=== PATIENT | female | born 1955 | race Caucasian/White ===

== ENCOUNTER 2025-07-14 14:34 | Inpatient (IN) | payer OTHER, MEDICARE ==
[~2025-07-14] VITALS: Ht 170.2 cm; Wt 158.8 kg
--- NOTE | 2025-07-14 14:40 | ELECTROCARDIOGRAPH REPORT ---
[facility] Test Date: 2025-07-14 Test Time: 14:38:33 Pat Name: SWATI KRAFT Department: EMERGENCY ROOM Room: Gender: F Supervisor Stripping: DARVIN : 1955 Requested By: ANGELES NULL Order Number: [id number] Reading MD: Dr. Angeles Null Measurements Intervals [place] Rate: 109 P: 0 UT: 0 QRS: -44 QRSD: 147 T: 30 QT: 362 QTc: 488 Interpretive Statements Atrial fibrillation RBBB and LAFB Probable left ventricular hypertrophy Electronically Signed On 07-14-2025 17:54:[address] Angeles Null Please click the below link to view image of tracing.
[2025-07-14 14:59] LABS: MEAN PLATELET VOLUME 8.6 FL (7.4-10.4); RED CELL DISTRIBUTION WIDTH 14.8 % (11.5-14.5)
--- NOTE | 2025-07-14 15:08 | RADIOLOGY REPORT ---
CHEST RADIOGRAPH Indication: CP Technique: Single frontal view of the chest was obtained COMPARISON: None FINDINGS: Lines and Tubes: None Lungs: Clear Pleura: No effusion. No pneumothorax. Cardiomediastinal contours: Unremarkable Bones: Unremarkable IMPRESSION: 1. No acute disease.
[2025-07-14 15:12] LABS: CREATININE 0.90 MG/DL (0.40-0.90); PRO BRAIN NATRIURETIC PEPTIDE 555 PG/ML (0-125); TOTAL CARBON DIOXIDE 26.1 MMOL/L (24-32); eCRCL 57 ML/MIN; eGFR 62 ML/MIN
[2025-07-14] MEDS: diltiazem 5mg/ml 5ml inj. IV ONE (15:53)
--- NOTE | 2025-07-14 16:12 | Physician Documentation ---
History of Present Illness ~ Chief Complaint: Shortness of Breath Stated Complaint: AFIB, GENERALIZED ANXIETY Time Seen by MD: 15:42 OK to notify your PCP?: Yes Primary Medical Doctor: N/A Source: patient, RN/MD, EMS, RN notes reviewed, EMS notes reviewed, old records Mode of Arrival: EMS Exam Limitations: no limitations HPI This patient is little bit obese but otherwise pretty healthy. She has some chronic knee pain. She states that she has been doing well she sees doctors does not have any past medical history does not smoke she has had a tonsillectomy. She has been otherwise in good health. For the last few weeks specifically this week she has been profoundly tired fatigued weak she states she feels very anxious today right now as her heart rate was in the 140s she states she feels anxious she does not necessarily feel palpitations or symptoms. She has no history of AFib. She is now requesting evaluation. Medication Reconciliation Allergies: Coded Allergies: albuterol (Verified Allergy, Severe, "shuts down my airway", 07/14/25) Penicillins (Verified Allergy, Intermediate, hives/whelps, 07/14/25) cephalexin (Verified Allergy, Intermediate, hives/whelps, 07/14/25) tetracycline (Verified Allergy, Intermediate, hives/whelps, 07/14/25) Past Medical History Past Medical History: Chronic Pain Past Surgical History: tonsillectomy Smoking Status: Never smoker Alcohol Use: None Drug Use: none Review of Systems All Other Systems at this time: Reviewed and Negative Physical Exam Vital Signs: RN Vital Signs have been reviewed: Yes, Temperature: 97.8, Source: Oral, Heart Rate: 119, Respiratory Rate: 12, BP: 149/99, Pulse Oximetry: 97, Weight: 158.800 Oxygen Flow Rate: 0 Physical Exam General: The patient is well developed, well nourished, nontoxic appearing and is in no acute distress. Morbidly obese Skin: [place], warm and dry with no rashes. HEENT: Head was normocephalic and atraumatic. Eyes - pupils equal, round, reactive to light and accommodation. Extraocular movements were intact. Conjunctivae were nonicteric. The mouth and oropharynx were clear with moist mucous membranes. There were no pharyngeal exudates or erythema. Neck: Supple and nontender. There was no jugular venous distention, lymphadenopathy, thyromegaly or masses. Chest: Clear to auscultation bilaterally without wheezes, rales or rhonchi. No accessory muscle use. No dullness to percussion. Heart: Rapid Rate IRRegular and rhythmic. S1, S2. No murmurs. Palpation of the chest wall was normal. Abdomen: Soft, nontender and nondistended. Positive bowel sounds. No guarding or rebound. Extremities: No cyanosis, clubbing or edema. The patient moves all extremities. Pulses were equal and symmetric. Neurologic: Motor sensory grossly intact Psychologic: The patient was oriented to person, place and time. The patient demonstrated appropriate judgement and insight. Progress Progress Note 5:59 p.m. discussed the case with the hospitalist. Dr Nba MOODY Results/Orders Results/Orders Orders - CORBIN NULL MD Chest,Single View (07/14/25 14:56) Monitor (07/14/25 14:38) Saline Lock (07/14/25 14:38) Oxygen (07/14/25 14:38) BMP (07/14/25 14:38) PBNP (07/14/25 14:38) Electrocardiogram (07/14/25 14:38) Diltiazem-Ns 100mg/100ml (Cardizem-Ns 10 (07/14/25 15:45) Liver Panel (07/14/25 14:38) MG (07/14/25 14:38) Page Hospitalist (07/14/25 17:35) Fill Out Med Reconciliation (07/14/25 17:35) Hgb A1c (07/14/25 14:38) PHOS (07/14/25 14:38) Completed Orders - CORBIN NULL MD Chest,Single View (07/14/25 14:56) Cbc/Diff (07/14/25 14:38) Electrocardiogram (07/14/25 14:38) Hs Troponin I W Calculations (07/14/25 14:38) Hs Troponin I W Calculations (07/14/25 17:38) Diltiazem Iv (Cardizem Iv 5mg/Ml Inj.) (07/14/25 15:45) Aspirin 325mg Tablet (Aspirin 325mg Tabl (07/14/25 16:20) Hs Troponin I W Calculations (07/14/25 16:19) Medications Received in ER Medications (Trade) Dose Ordered Sig/Sylvie Route PRN Reason Start Time Stop Time Status Last Admin Dose Admin (Cardizem IV 5mg/ ml inj.) 5 mg ONCE ONCE IV 07/14/25 15:45 07/14/25 15:48 DC 07/14/25 15:53 5 MG Diltiazem HCl 100 ml @ 5 mls/hr Q20H PRN IV PER PROTOCOL 07/14/25 15:45 07/14/25 16:18 5 MLS/HR (aspirin 325mg tablet) 1 tab ONCE ONCE PO 07/14/25 16:20 07/14/25 16:21 DC 07/14/25 16:21 1 TAB Vital Signs 07/14/25 07/14/25 07/14/25 07/14/25 14:35 14:50 15:00 15:53 Temp 97.8 97.8 Pulse 107 107 119 Resp 15 12 14 B/P (MAP) 151/96 149/99 (116) 149/99 Pulse Ox 97 97 O2 Flow Rate 0 0 07/14/25 07/14/25 07/14/25 07/14/25 16:00 16:18 16:42 17:00 Temp 97.8 97.8 Pulse 140 73 101 Resp 19 11 18 B/P (MAP) 138/100 (113) 138/100 137/100 (112) 159/90 (113) Pulse Ox 97 99 95 O2 Flow Rate 0 0 Laboratory Tests Test 07/14/25 14:38 07/14/25 16:26 07/14/25 17:49 07/14/25 18:09 White Blood Count 6.0 Red Blood Count 5.52 Hemoglobin 16.2 H Hematocrit 48.8 H Mean Corpuscular Volume 88.3 Mean Corpuscular Hemoglobin 29.4 Mean Corpuscular Hemoglobin Concent 33.3 Red Cell Distribution Width 14.8 H Platelet Count 235 Mean Platelet Volume 8.6 Neutrophils (%) (Auto) 52.1 Lymphocytes (%) (Auto) 34.4 Monocytes (%) (Auto) 10.3 Eosinophils (%) (Auto) 2.1 Basophils (%) (Auto) 1.1 H Neutrophils # (Auto) 3.1 Lymphocytes # (Auto) 2.1 Monocytes # (Auto) 0.6 Eosinophils # (Auto) 0.1 Basophils # (Auto) 0.1 CBC Comment Sodium Level 141 Potassium Level 4.4 Chloride Level 107 Carbon Dioxide Level 26.1 Anion Gap 8 Blood Urea Nitrogen 14 Creatinine 0.90 Estimated GFR/1.73 m2 62 BUN/Creatinine Ratio 15.6 Glucose Level 109 H Calcium Level 8.6 Magnesium Level 2.1 Total Bilirubin 0.6 Direct Bilirubin 0.1 Aspartate Amino Transf (AST/SGOT) 19 Alanine Aminotransferase (ALT/SGPT) 13 Alkaline Phosphatase 128 H Troponin I High Sensitivity 7 7 9 Pro-B-Type Natriuretic Peptide 555 H Total Protein 6.9 Albumin 3.1 L Globulin 3.8 Albumin/Globulin Ratio 0.8 L Chemistry Comments Troponin I High Sens Percent Delta 0 28 Troponin I Hi Sens Absolute Change 0 2 Re-Evaluation Re-evaluation : Re-Evaluation: Improved Progress Hospital course: Patient was seen and examined. Patient was given reassurance. Patient was started on Cardizem. She received a bolus and then a drip. Also received aspirin. Laboratory work was obtained. Patient's heart rate improved with time she is stabilized. Laboratory work revealed normal CBC with a WBCs 6.0 hemoglobin hematocrit slightly concentrated 16 and 48 otherwise no left shift. D-dimer was added by the hospitalist service but the patient complained of no shortness of breath no recent travel no swollen legs chemistry is within normal limits. LFTs within normal limits. Troponins x3 is negative. ProBNP 5 five five. Later I contacted the hospitalist regarding management of the patient. Patient also received aspirin. Because the patient is is stable relatively speaking and negative troponin without any end-organ disease no distress and unknown when the AFib started patient will not be cardioverted but instead medically manage him admitted. Continuous umbrella tipper machine interpretation shows rapid AFib with RVR heart rate 140s, abnormal, my interpretation. Pulse oximetry monitor interpretation shows normal oxygenation at 97% room air, normal, my interpretation. EKG/XRAY/CT/US/VASC/MRI Chest X-Ray : Views: 1 VIEW Additional Comments CHEST RADIOGRAPH Indication: CP Technique: Single frontal view of the chest was obtained COMPARISON: None FINDINGS: Lines and Tubes: None Lungs: Clear Pleura: No effusion. No pneumothorax. Cardiomediastinal contours: Unremarkable Bones: Unremarkable IMPRESSION: 1. No acute disease. Medical Decision Making Additional info obtained from: old records Differential Dx:Considerations: Include: anxiety, asthma, bronchitis, cardiogenic shock, CHF, COPD, dysrhythmia, hypertension, accelerated, hypertension, essential, hypertension, malignant, hyperventilation, hyp onatremia, myocardial infarction, panic attack, pneumonia, pneumonitis, pneumothorax, PSVT, pulmonary embolism, respiratory distress, respiratory failure, sinusitis, upper resp. infection, other Departure Disposition: ADMITTED INPATIENT Admitted to Inpatient Unit: yes, to hospitalist Admission Level of Care: PCU with Tele Impression: Primary Impression: Atrial fibrillation with rapid ventricular response Condition: Guarded Referrals: NO PRIMARY CARE PROVIDER (PCP) Education Educated: Patient Educated regarding: diagnosis, need for follow up, other Critical Care Note Total Time (mins): 30 Critical Care Note The very real possibility of a deterioration of this patient's condition required the highest level of my preparedness for sudden, emergent intervention. I provided critical care services, which included medication orders, frequent reevaluations of the patient's condition and response to treatment, ordering and reviewing test results, and discussing the case with various consultants. Excludes time spent performing separately billable procedures. The critical care time associated with the care of the patient was. 30 minutes Signature Scribe Signature: . Attestation: The note accurately reflects work and decisions made by me.Corbin Null MD 07/14/25 17:35 CORBIN NULL MD Jul 14, 2025 16:12
[2025-07-14] MEDS: diltiazem-NS 100mg/100ml 100 ML IV PRN (16:18)
[2025-07-14] MEDS ORDERED: ondansetron/PF 4mg/2ml inj IV PRN (18:00)
[2025-07-14] MEDS ORDERED: HYDROcodone/acetaminophen 10/325mg tab PO PRN (18:00)
[2025-07-14] MEDS ORDERED: potassium Cl 40MEQ/1/2NS 520ml 520 ML IV PRN (18:00)
[2025-07-14] MEDS ORDERED: HYDROcodone/acetaminophen 5mg/325mg tablet PO PRN (18:00)
[2025-07-14] MEDS ORDERED: bisacodyl 10mg suppository rectal RC PRN (18:00)
[2025-07-14] MEDS ORDERED: magnesium hydroxide 30ml (MOM) UD suspension PO PRN (18:00)
[2025-07-14] MEDS ORDERED: magnesium sulf-water 4G/100mL 100 ML IV PRN (18:00)
[2025-07-14] MEDS ORDERED: potassium Cl 20 mEq SR tablet PO PRN ×2 (18:00)
[2025-07-14] MEDS ORDERED: magnesium Cl slow-release 64mg tablet PO PRN (18:00)
[2025-07-14] MEDS ORDERED: acetaminophen 650mg rectal suppository RC PRN (18:00)
[2025-07-14] MEDS ORDERED: magnesium sulf-water 2g/50mL 50 ML IV PRN (18:00)
[2025-07-14] MEDS ORDERED: mag hydrox/Alum hydrox/simeth 30ml oral suspension PO PRN (18:00)
[2025-07-14 18:26] LABS: LEUKOCYTE ESTERASE ,URINE TRACE (Neg); NITRITES, URINE NEGATIVE (Neg); OCCULT BLOOD,URINE NEGATIVE (Neg); UA COLLECTION TYPE CLN CATCH MIDSTREAM
[2025-07-14 18:27] LABS: PHOSPHORUS 2.3 MG/DL (2.3-4.5)
[2025-07-14 18:34] LABS: SQUAMOUS EPITHELIAL CELL,UR FEW /LPF (FEW)
--- NOTE | 2025-07-14 18:43 | HISTORY AND PHYSICAL ---
History & Physical Providers to CC ~, shortness of breath History of Present Illness Reason for Admit\\Complaint: As above History of Present Illness This is 70 years old white female with history of morbid obesity BMI 54, multiple allergies, CHF, ejection fraction unknown, hypertension, anxiety, presented today to emergency department via ambulance, chief chief complaint shortness of breath weakness, anxiety, in addition this is the patient is little bit obese but otherwise pretty healthy. She has some chronic knee pain. She states that she has been doing well she sees doctors does not have any past medical history does not smoke she has had a tonsillectomy. She has been otherwise in good health. For the last few weeks specifically this week she has been profoundly tired fatigued weak she states she feels very anxious today right now as her heart rate was in the 140s she states she feels anxious she does not necessarily feel palpitations or symptoms. She has no history of AFib. She is now requesting evaluation. Emergency department patient was evaluated by physician was diagnosed with atrial fibrillation new onset, rapid ventricular rate started on Cardizem infusion and decision was made to admit patient for further evaluation and treatment, no additional complaint or concern. Allergies: Coded Allergies: albuterol (Verified Allergy, Severe, "shuts down my airway", 07/14/25) Penicillins (Verified Allergy, Intermediate, hives/whelps, 07/14/25) cephalexin (Verified Allergy, Intermediate, hives/whelps, 07/14/25) tetracycline (Verified Allergy, Intermediate, hives/whelps, 07/14/25) Active prescriptions I reviewed reconciled Home Medications Pending Past Medical History Past Medical History As in HPI Past Surgical History Surgical History Comment As in HPI Past Social History Social History Comment Deny illicit drug abuse tobacco alcohol use live with the family good social support Health Maintenance Health Maintenance Noncontributory ROS ROS Constitutional : no fever , no chills, or weakness. No diaphoresis. Allergic/Immunologic, no lymphadenopathy, no hives, no skin eruptions. Eyes, no recent visual changes, no eye pain, no photophobia. Ears, nose, mouth, throat, no sore throat, no nosebleed, no ear pain. Cardiovascular, no palpitations, skipped beats, chest pain, no peripheral edema, Respiratory, positive for dyspnea, no orthopnea, cough, hemoptysis, chest wall pain. Gastrointestinal, no abdominal pain, nausea, vomiting, constipation or diarrhea. : no dysuria, hematuria, pelvic pain, urethral d/c. Endocrine, no polyuria, polydipsia, recent unintentional weight gain or loss. Hematologic/Lymphatic, no petechiae, no enlarged lymph nodes, no bone pain. Integumentary, no rash, no skin lesions, Musculoskeletal, no muscle aches, or pain, no muscle cramps, no recent change in gait Neurological, no dizziness, no headache, no syncope, no paresthesia. Psychiatric, no delusions, visual hallucinations, or hearing hallucinations. ROS - in rest is as in HPI. Exam Vitals: Vital Signs Date Time Temp Pulse Resp B/P (MAP) Pulse Ox O2 Delivery O2 Flow Rate FiO2 07/14/25 18:00 97.8 85 14 148/91 (110) 97 0 Vital signs, stable ,afebrile. Pulse Oximetry reflects adequate oxygenation. BMI is 54, weight 158 kg General: well developed, well nourished. Awake , alert, and oriented x4, resting comfortably in the bed, in no acute distress . Skin: Warm, dry, no pallor, no rash or petechiae. HEENT: Atraumatic, normocephalic, EOMI, anicteric sclera B; pink conjunctiva; PERRLA, normal oropharynx, moist oral and nasal mucosa. Tympanic membrane , nose , throat clear. Neck: Trachea midline. Supple, full range of motion, no JVD, bruit , hepatojugular reflex , lymphadenopathy or masses, or other lesions Cardiac: Regular rhythm, regular rate no murmurs, rubs, or gallops. Normal S1 and S2, no S3 noticed. PMI is normal. Respiratory: Equal breath sounds bilaterally, no tachypnea; lungs clear to auscultation bilaterally, no wheezing ,rub or rales, or crackles. Chest wall is symmetric and without deformity. No signs of trauma. Chest wall is nontender. No signs of respiratory distress. Resonance is normal upon percussion bilaterally. Gastrointestinal: Abdomen symmetric, non-distended, soft, non-tender, normal bowel sounds x4 quadrant, normoactive, no hepatosplenomegaly , no masses , no bruit, no flank pain bilaterally. No voluntary guarding, rebound, or rigidity. No tenderness to percussion. No pulsatile masses. Equal femoral pulses. No Perdomo's sign or McBurney point tenderness. Back; no CVA tenderness bilaterally, no deformities. Neck and back are without deformity as well. No tenderness noted on palpation of the spinous processes. Spinous processes are midline. Cervical, thoracic, and lumbar paraspinal muscles are not tender and are without spasm. : Not indicated Musculoskeletal: Extremities, normal range of motion, non-tender, muscle strength 5/5 x 4. Negative Homans signs bilaterally on lower extremity. Distal pulses full symmetrical, no clubbing, cyanosis , edema. Neurological: Speech is clear, alert, and oriented x 4. No motor or sensory deficit, deep tendon reflexes normal, cerebellar intact. Cranial nerves II-XII intact. Psych: Alert and or appropriate, normal affect. Vascular: Good distal pulses, which are equal x4; capillary refill less than 2 seconds. Lymphatic, no lymphadenopathy. Diagnostic Data Last Recorded Lab Results: 07/14/25 1438 07/14/25 1438 Diagnostic Data: Laboratory Tests Test 07/14/25 18:09 D-Dimer 0.48 MG/L FEU (0-0.50) D-Dimer Comment Advance Care Planning Advanced Care plannin - 30 Minutes Additional Plan Assessment Morbid obesity BMI 54 CHF ejection fraction unknown mild exacerbation Atrial fibrillation new onset rapid ventricular rate Generalized weakness Anxiety disorder in exacerbation Hypertension poor control Hypoalbuminemia Multiple allergies Plan Started on IV Cardizem Started on Eliquis p.o. b.i.d. Nutrition consult Serial troponin EKG Echocardiography pending Additional lab work pending Lasix p.r.n. IV PT evaluation and treatment I reconciled home medications DVT gastropathy prophylaxis addressed Sepsis Screening Reassessment Date: Jul 14, 2025 Date of Service: Jul 14, 2025 Billing Provider: GUILLERMINA FERNANDEZ MD Common Visit Codes: 34697-[id number] INP/OBS CARE (HIGH) Secondary Visit Codes: [id number] CARE PLAN 30 MINUTES GUILLERMINA FERNANDEZ MD Jul 14, 2025 18:43
[2025-07-14] MEDS: normal saline 1000ml 1,000 ML IV SCH (19:50)
[2025-07-14] MEDS: docusate sod 100mg capsule PO SCH (20:00)
[2025-07-14] MEDS: K and/or MAG REPLACEMENT MC SCH (20:00)
[2025-07-14 21:00] VITALS: BP 136/88; PULSE 82; RESP 15; TEMP 98.1; O2SAT 97
[2025-07-14 22:00] VITALS: BP 129/90; PULSE 72; RESP 20; TEMP 97.8; O2SAT 96
[2025-07-14 23:00] VITALS: BP 119/82; PULSE 74; RESP 17
[2025-07-14 23:24] VITALS: RESP 15; O2SAT 97
[2025-07-15] VITALS (14 sets, daily range): BP systolic 97–134; BP diastolic 56–79; PULSE 60–97; RESP 14–23; TEMP 97.4–98.1; O2SAT 94–97
[2025-07-15] MEDS: diltiazem-NS 100mg/100ml 100 ML IV ONE (05:39)
[2025-07-15 06:30] LABS: MEAN PLATELET VOLUME 8.7 FL (7.4-10.4); RED CELL DISTRIBUTION WIDTH 14.4 % (11.5-14.5)
[2025-07-15 07:00] LABS: CHOL/HDL RATIO 5.1 (0.00-4.99); CREATININE 0.91 MG/DL (0.40-0.90); LDL CHOLESTEROL 129 MG/DL (50-100); TOTAL CARBON DIOXIDE 25.2 MMOL/L (24-32); eCRCL 56 ML/MIN; eGFR 61 ML/MIN
[2025-07-15] MEDS ORDERED: diltiazem-NS 100mg/100ml 100 ML IV PRN (07:02)
[2025-07-15] MEDS: diltiazem 60mg tablet PO SCH (08:08)
[2025-07-15] MEDS: pantoprazole 40mg Tablet.DR PO SCH (08:08)
[2025-07-15] MEDS: diltiazem 30mg tablet PO SCH (13:38)
--- NOTE | 2025-07-15 19:39 | PROGRESS NOTE ---
Daily Progress Note Providers to CC ~ Antibiotic Timeout Antibiotic Ordered?: No Subjective The patient is diltiazem drip was discontinued the patient is on p.o. diltiazem now in heart rate is controlled patient is also on apixaban for DVT and stroke prophylaxis. The patient does deny history of atrial fibrillation or arrhythmias was asking if she was going to be discharged home I informed her she would stay another night and likely be discharged in the a.m. Objective Vital Signs Date Time Temp Pulse Resp B/P (MAP) Pulse Ox O2 Delivery O2 Flow Rate FiO2 07/15/25 15:00 98.1 71 16 116/75 (89) 96 Room Air 07/14/25 18:00 0 Result Diagram: 07/15/25 0551 07/15/25 0551 Gen. No acute distress alert and oriented 4 Lungs clear to ascultation bilaterally, no wheezes rales or rhonchi appreciated Heart irregular rhythm no murmurs rubs or clicks noted Abdomen soft nontender bowel sounds are normoactive Lower extremities no clubbing cyanosis, nor edema appreciated bilaterally Coagulation Studies Laboratory Tests Test 07/14/25 18:09 D-Dimer 0.48 MG/L FEU (0-0.50) D-Dimer Comment Problem\Assessment\Plan Problems/Diagnosis: (1) Atrial fibrillation with rapid ventricular response # AFib RVR Diltiazem drip was discontinued On p.o. diltiazem Apixaban for DVT and stroke prophylaxis # elevated proBNP Secondary to dilated cardiomyopathy No signs of fluid overload #HLD Total cholesterol 190 with a LDL of 129 HDL of 37 Start atorvastatin 40 mg daily Disposition: Anticipate discharge in the a.m. Date of Service: Jul 15, 2025 Billing Provider: GE MIRANDA DO Common Visit Codes: [id number] INP/OBS CARE(HIGH) GE MIRANDA DO Jul 15, 2025 19:39
--- NOTE | 2025-07-15 20:59 | CARDIOLOGY REPORT ---
APPROVED REPORT EXAM: Comprehensive 2D, Doppler, and color-flow Echocardiogram. Patient Location: [address] Heart Rate: 78-101 bpm Rhythm: ATRIAL FIBRILLATION Indications ATRIAL FIBRILLATION / CONGESTIVE HEART FAILURE PBNP [address] Captain: NONE Previous echo: NONE 2D Dimensions RVDd 4.9 cm IVSd 1.0 (0.7-1.1cm) LVDd 5.4 cm PWd 1.0 (0.7-1.1cm) IVSs 1.2 (0.8-1.2cm) LVDs 4.0 (2.5-4.0cm) PWs 1.3 (0.8-1.2cm) LVOT Diameter 2.00 (1.8-2.4cm) LVEF(%) 50.1 (>50%) IVC 24.38 mm FS (%) 25.7 % SV 72.3 ml CO 7.7 L/min M-Mode Dimensions Left Atrium(MM) 5.94 (2.5-4.0cm) Aortic Root 2.92 (2.2-3.7cm) Aortic Cusp Exc 1.76 (1.5-2.0cm) Aortic Valve AoV Peak Jt. 141.0 cm/s AoV VTI 20.5 cm AO Peak GR. 7.9 mmHg AO Mean GR. 4 mmHg LVOT VTI 14.20 cm LVOT Peak Jt. 91.5 cm/s TYRESE(VTI)/BSA 2.18 cm2/m2 TYRESE (VTI) 2.18 cm2 Mitral Valve MV Peak Gr. 4 mmHg MV PHT 72 ms MVA (PHT) 3.06 cm2 MV VMax99.6 cm/s Tricuspid Valve TR P. Velocity 296 cm/s RAP ESTIMATE 10 mmHg TR Peak Gr. 35 mmHg RVSP 45 mmHg LEFT VENTRICLE Normal LV size and wall thickness. Overall systolic function is low normal. Overall LVEF is about 60% RIGHT VENTRICLE RV is severely dilated with normal function. Estimated PA systolic pressure of 45 mm of mercury. ATRIA Left atrium is severely dilated. AORTIC VALVE Trileaflet AV appears mildly sclerotic without stenosis. No insufficiency. MITRAL VALVE Mild MV annular calcification without stenosis. Mild regurgitation. TRICUSPID VALVE TV appears structurally normal with moderate regurgitation. PULMONIC VALVE Normal PV without stenosis, physiologic insufficiency. GREAT VESSELS The aortic root is normal in size. PERICARDIUM Normal pericardium. No effusion. Other Information Study Quality: Adequate Conclusion Overall LVEF is about 60% Normal LV size and wall thickness. Overall systolic function is low normal. RV is severely dilated with normal function. Estimated PA systolic pressure of 45 mm of mercury. Trileaflet AV appears mildly sclerotic without stenosis. No insufficiency. Mild MV annular calcification without stenosis. Mild regurgitation. TV appears structurally normal with moderate regurgitation. Normal PV without stenosis, physiologic insufficiency. Normal pericardium. No effusion.
[2025-07-16 02:00] VITALS: BP 104/68; PULSE 64; RESP 18; TEMP 98.7; O2SAT 96
[2025-07-16 06:00] VITALS: BP 122/71; PULSE 72; RESP 17; TEMP 97.7; O2SAT 94
[2025-07-16 06:35] LABS: MEAN PLATELET VOLUME 8.4 FL (7.4-10.4); RED CELL DISTRIBUTION WIDTH 14.3 % (11.5-14.5)
[2025-07-16 06:54] LABS: CREATININE 0.85 MG/DL (0.40-0.90); TOTAL CARBON DIOXIDE 23.6 MMOL/L (24-32); eCRCL 60 ML/MIN; eGFR 66 ML/MIN
[2025-07-16] MEDS ORDERED: AMIO200T73 PO (06:56)
[2025-07-16] MEDS ORDERED: APIX5TAB3 PO (06:56)
[2025-07-16 08:00] VITALS: RESP 17; O2SAT 94
[2025-07-16 11:00] VITALS: BP 115/77; PULSE 94; RESP 26; TEMP 98; O2SAT 94
[2025-07-16] MEDS ORDERED: DILT60TA3 PO ×2 (11:50→16:01)
[2025-07-16] MEDS ORDERED: DILT30TA2 PO (11:52)
--- NOTE | 2025-07-16 13:14 | DISCHARGE SUMMARY ---
Discharge Summary Providers to CC ~ Discharge Summary Admission Diagnosis: AFIB RVR Hospital Course DATE OF ADMISSION: 07/14/25 DATE OF DISCHARGE: 07/16/25 Discharge Diagnosis\Comment: Atrial fibrillation with RVR, CHADS-VASc 4 Hyperlipidemia Hypertension Class III obesity Operations\Procedures: None Consultants: None Complications: None Condition on DC: Stable New Medications: Amiodarone HCl (Amiodarone HCl) 200 Mg Tablet 1 TAB PO BID for 30 Days, #44 TAB 0 Refills Take 1 tablet by mouth every 12 hours x 2 weeks, then take 1 tablet by mouth once daily thereafter. Diltiazem Hcl (Cardizem) 60 Mg Tablet 1 TAB PO Q8H for 30 Days, #90 TAB 0 Refills Apixaban (Eliquis) 5 Mg Tablet 5 MG PO BID for 30 Days, #60 TAB Discharge Summary: Hospital Course Alexsandra Calderon is a 70-year-old female with past medical history of morbid obesity, CHF who presented to the ED with chief complaints of shortness of breaths and anxiety. Diagnostic findings were notable for atrial fibrillation with RVR. Patient reported recent URI. Pertinent negative findings were unremarkable serum lytes, wnl TSH and T4, afebrile, no hypoxia, normal d-dimer. Patient was initially treated with diltiazem drip which was transitioned to oral diltiazem. TTE revealed LVEF of 60%, RVSP 45mmHg, severely dilated left atrium. Patient did not experience further complications throughout the entire hospital stay. Patient was seen and examined on the day of discharge. On day of discharge, vss and labs unremarkable. Telemetry remained atrial fibrillation in 90s. All labs, diagnostic workups, discharge plan discussed with patient in details during visit before discharge. All questions and concerns answered to the best of my professional knowledge. Patient is to be discharged to home to self and to follow-up with PCP and outpatient baker bread within 2 weeks. Physical Exam General: A&Ox 3, NAD HEENT: Normocephalic, PERRLA Neck: Supple, trachea midline, no JVD Chest: Clear to auscultation bilaterally Cardiovascular: IRIR GI: Soft and nontender Extremities: No cyanosis/clubbing/or edema FUNCTIONAL ANALYST: CN II-XII intact, no focal deficits Musculoskeletal: No paraspinal muscle tenderness, no muscle spasm Skin: Warm and intact *Problems/Diagnosis: (1) Atrial fibrillation with rapid ventricular response Status: Acute Total Time Spent on D/C: > 30 Minutes Date of Service: Jul 16, 2025 Billing Provider: DORCAS RAINEY Common Visit Codes: [id number]-FEJ/OBS DISCH DAY >30min DORCAS RAINEY Jul 16, 2025 13:14
== END 2025-07-16 12:24 | disposition home or self-care (01) | DRG 309 ==
LOC: ER 14:34 → ED HOLD 18:48 → EDBEDREQ 19:40 → PCU 3S 20:36
PROVIDERS: ADMIT Family Medicine; ATTEND Family Medicine
DX: I48.91 Unspecified atrial fibrillation (principal); Z68.43 Body mass index [BMI] 50.0-59.9, adult; I42.0 Dilated cardiomyopathy; E88.09 Other disorders of plasma-protein metabolism, not elsewhere classified; G89.29 Other chronic pain; I11.0 Hypertensive heart disease with heart failure; Z79.01 Long term (current) use of anticoagulants; Z88.0 Allergy status to penicillin; Z88.1 Allergy status to other antibiotic agents; E78.5 Hyperlipidemia, unspecified; I50.9 Heart failure, unspecified; F41.9 Anxiety disorder, unspecified; E66.813 Obesity, class 3
CPT/HCPCS: 36415; 71045; 80048; 80053; 80061; 80076; 81001; 83036; 83735; 83880; 84100; 84439; 84443; 84484; 85025; 85379; 87077; 87081; 87088; 87186; 93005; 93306; 96365; 96375; 97116; 97161; 99291; A6258; A6402; G0378; J3490; J7030